=== PATIENT | female | born 1965 | race African-American/Black ===

== ENCOUNTER 2018-06-17 19:55 | Emergency (ER) | payer MEDICAID ==
[~2018-06-17] VITALS: Ht 149.9 cm; Wt 87.1 kg
[2018-06-17 20:19] VITALS: BP 132/77
[2018-06-17] MEDS ORDERED: Ketorolac 60mg Inj IM ONE (20:30)
[2018-06-17] MEDS ORDERED: NAPROXEN375 M2 ORAL (20:31)
--- NOTE | 2018-06-17 20:31 | Emergency Room Report ---
History of Present Illness General Chief Complaint: Back Pain-No Injury Source: Patient Present Illness HPI The pain is described as a burning-ache across lower back gradual onset two days. It is not "tearing" quality. There is no trauma per se, no weakness or numbness or bladder or bowel abnormality. There are no urinary complaints (no frequency, urgency or dysuria.) There is no flank pain. There is no abdominal pain. There is no discharge. Pt. is ambulatory. No recent PSH/procedures/ trauma. +previous ED visits for same. About ~seven year history LBP, s/p laminectomy, was on [place] chronically. Recently switched off [place]. Allergies: Coded Allergies: LATEX (Verified Allergy, Unknown, 06/17/18) Patient History Last Menstrual Period: n/a Nursing Documentation-H Past Medical History: No History, Except For Review of Systems Constitutional: Reports: no symptoms Eye: Reports: no symptoms ENT: Reports: no symptoms Respiratory: Reports: no symptoms Cardiovascular: Reports: no symptoms Gastrointestinal: Reports: no symptoms Genitourinary: Reports: no symptoms Musculoskeletal: Reports: back pain Skin: Reports: no symptoms Psychiatric: Reports: no symptoms Neurological: Reports: no symptoms Endocrine: Reports: no symptoms Hematologic/Lymphatic: Reports: no symptoms Allergic: Reports: no symptoms All Other Systems: negative except mentioned in HPI Physical Exam Vital Signs Date Time Temp Pulse Resp B/P (MAP) Pulse Ox O2 Delivery O2 Flow Rate FiO2 06/17/18 20:06 98.6 74 16 132/77 96 Room Air Sp02 EP Interpretation: reviewed, normal General Appearance: normal inspection, well appearing, alert, GCS 15, non-toxic , mild distress, other - uncomfortable Head: normocephalic, atraumatic Eyes: bilateral eye normal inspection, bilateral eye PERRL, bilateral eye EOMI ENT: normal ENT inspection, hearing grossly normal, normal pharynx, no angioedema, normal voice, moist mucus membranes Neck: normal inspection, full range of motion, supple, no meningismus, no bony tend Respiratory: normal inspection, lungs clear, normal breath sounds, no rhonchi, no respiratory distress, no retraction, no accessory muscle use, no wheezing Cardiovascular #1: normal inspection, regular rate, rhythm, no edema Gastrointestinal: normal inspection, normal bowel sounds, non tender, soft, no mass, non-distended Musculoskeletal: gait/station normal, normal range of motion Neurologic: normal inspection, alert, oriented x3, responsive, motor strength/ tone normal Psychiatric: normal inspection, judgement/insight normal, memory normal Suicide Risk Assessment: Suicidal Ideation: No Had intent to initiate attempt: No Pt's plan for suicide attempt: No Has means to complete attempt: No Skin: normal inspection, normal color, no rash, warm/dry Medical Decision Making ER Course EMERGENCY DEPARTMENT COURSE / MEDICAL DECISION MAKING: My differential diagnosis was: renal colic, UTI,AAA, aortic dissection, sciatica , early zoster, lumbosacral strain, chronic lumbosacral strain/pain (LBP). My initial impression was: chronic low back pain My final impression was the same and the patient was discharged The patient is a good candidate for outpatient care and will be discharged with instructions to follow up with their PMD or pain management physician as needed. I explained the findings and plan to the patient, who expressed verbal understanding and agreed with plan for discharge and follow up. The patient was given after care instructions and welcomed to return to the ED for any new or worsening symptoms. The patient was stable at the time of discharge. Prescribed Naprosyn 375 mg. BID The patient's blood pressure was elevated >120/80 but appears stable without evidence of hypertensive emergency or urgency. The patient was counseled about the risks of hypertension and urged to pursue outpatient monitoring and therapy within a week with their primary care physician or the list given in the community resources book. Last Vital Signs Date Time Temp Pulse Resp B/P (MAP) Pulse Ox O2 Delivery O2 Flow Rate FiO2 06/17/18 20:19 98.6 16 132/77 96 Room Air 06/17/18 20:06 74 Status: improved Disposition: HOME, SELF-CARE Scripts Naproxen* (NAPROXEN*) 375 Mg Tablet. 375 MG ORAL TWICE A DAY for 10 Days, #20 TAB Prov: Abdirahman Butler M.D. 06/17/18 Patient Instructions: Back Pain, Adult Abdirahman Butler M.D. Jun 17, 2018 20:31
[2018-06-17 20:58] VITALS: BP 140/77
== END 2018-06-17 21:00 | disposition home or self-care (01) ==
LOC: EMR 20:42
DX: M54.5 Low back pain (principal); G89.29 Other chronic pain; Z91.040 Latex allergy status
CPT/HCPCS: 96372; 99283

== ENCOUNTER 2018-08-19 13:17 | Emergency (ER) | payer MEDICAID ==
[~2018-08-19] VITALS: Ht 149.9 cm; Wt 81.6 kg
[~2018-08-19 13:17] MED LIST: NAPROXEN375 M2 ORAL
[2018-08-19 13:30] VITALS: BP 131/82
[2018-08-19] MEDS ORDERED: NKM (13:30)
[2018-08-19] MEDS ORDERED: Methocarbamol 500mg tab ORAL ONE (14:00)
[2018-08-19] MEDS ORDERED: Ketorolac 30mg Inj IM ONE (14:00)
[2018-08-19] MEDS ORDERED: TYLENOL EXTRA500 MG ORAL (14:05)
[2018-08-19] MEDS ORDERED: LIDOCAINE700 M1 TP (14:05)
[2018-08-19] MEDS ORDERED: ROBAXIN500 MG PO (14:05)
--- NOTE | 2018-08-19 14:06 | Emergency Room Report ---
History of Present Illness General Chief Complaint: Back Pain-No Injury Source: Patient Present Illness HPI 53-year-old female patient presents the ER complaining of low back pain for the past week. Patient reports that there is no acute injury or trauma however during the past week she has been doing a lot of repetitive movements at home in preparation for [place] and getting "decorations ready". Patient denies bowel or bladder incontinence. Denies pain rating down her legs. Reports history of stenosis and sciatica, states that she had surgery 10 years ago. Denies pain radiating down legs currently. Reports she was previously taking [place] and Ultram however 4 months ago she went off all opioid pain medicine. States that she was here a month ago for similar symptoms, states that she was given a shot of Toradol which helped relieve her symptoms. Denies history of diabetes. She normally walks with cane. Denies fall. States she normally takes naproxen currently. denies dysuria, hematuria. Allergies: Coded Allergies: LATEX (Verified Allergy, Unknown, 06/17/18) Patient History Past Medical History: see triage record Reviewed Nursing Documentation: PMH: Agreed; PSxH: Agreed Nursing Documentation-PMH Past Medical History: No History, Except For Review of Systems All Other Systems: negative except mentioned in HPI Physical Exam Vital Signs Date Time Temp Pulse Resp B/P (MAP) Pulse Ox O2 Delivery O2 Flow Rate FiO2 08/19/18 13:26 98.1 70 19 131/82 98 Room Air Sp02 EP Interpretation: reviewed, normal General Appearance: well appearing, no apparent distress, alert, GCS 15, non- toxic Head: normocephalic, atraumatic Eyes: bilateral eye normal inspection, bilateral eye PERRL ENT: hearing grossly normal, normal pharynx, no angioedema, normal voice, uvula midline, moist mucus membranes Neck: full range of motion Respiratory: lungs clear, normal breath sounds, no rhonchi, no respiratory distress, no accessory muscle use, no wheezing, speaking full sentences Cardiovascular #1: regular rate, rhythm, no edema Genitourinary: no CVA tenderness Musculoskeletal: back normal, digits/nails normal, gait/station normal, normal range of motion, other - No spinous process tenderness, no bony depression, no erythema or edema, no ecchymosis, tender - Bilateral lumbosacral region Neurologic: alert, oriented x3, responsive, motor strength/tone normal, SLR negative, sensory intact Psychiatric: mood/affect normal Skin: no rash Medical Decision Making PA Attestation Dr. Martines is my supervising Physician whom patient management has been discussed with. Diagnostic Impression: Primary Impression: Chronic back pain ER Course Pt presents to ED c/o back pain. DDX considered but are not limited to sprain, strain, cauda equina, epidural abscess, AAA, spinal cord compression, kidney stones, chronic pain. Denies dysuria, hematuria, denies vaginal discharge, low suspicion for UTI, does not require UA at this time. Low suspicion for cauda equina, no bowel or bladder incontinence or retention. No fever, nontoxic appearing, no radiation of pain, low suspicion for epidural mass. No abdominal pain, no blood pressure elevation, nontoxic appearing, low suspicion for AAA. No acute injury or trauma, does not require imaging at this time. VITAL SIGNS are WNL, patient is afebrile ER COURSE: Toradol, lidocaine patch, Robaxin medication provided. Follow-up with primary care provider for further evaluation and treatment. Reports pain symptoms improve. Patient observed walking in the ER. Advised patient on Tylenol use of naproxen. Followup with pain management and/or PT. Request referral from PCP. Followup wtih PCP for further MRI and/or CT imaging as needed. DISCHARGE: -Rx provided for Tylenol -Rx provided for Lidocaine patch -Rx provided for Robaxin. SE may cause drowsiness, do not take prior to drinking , driving, or operating [employer] machinery. At this time pt. is stable for d/c to home. At this time patient is resting comfortably, in no acute distress, nontoxic appearing, smiling and talking without difficulty. Will provide printed patient care instructions, and any necessary prescriptions. Patient instructed to follow with primary care provider for further treatment and referral as needed. Care plan and follow up instructions have been discussed with the patient prior to discharge. Patient reports understanding and agreement to treatment plan. Patient questions asked and answered. ER precautions given, patient instructed to return to ER immediately for any new or worsening of symptoms. - Please note that this Emergency Department Report was dictated using Choistervegetable grader technology software, occasionally this can lead to erroneous entry secondary to interpretation by the dictation equipment. Last Vital Signs Date Time Temp Pulse Resp B/P (MAP) Pulse Ox O2 Delivery O2 Flow Rate FiO2 08/19/18 13:26 98.1 70 19 131/82 98 Room Air Status: improved Disposition: HOME, SELF-CARE Condition: Stable Scripts Acetaminophen* (TYLENOL EXTRA STRENGTH*) 500 Mg Tablet 500 MG ORAL Q8H PRN for Prn Headache/Temp > 101, #30 TAB 0 Refills Prov: Marcus Sexton 08/19/18 Methocarbamol* (ROBAXIN*) 500 Mg Tablet 500 MG PO TID, #21 TAB 0 Refills Prov: Marcus Sexton 08/19/18 Lidocaine (Lidocaine) 1 Each Adh..patch 5 % TP DAILY for 7 Days, #7 PATCH Prov: Marcus Sexton 08/19/18 Patient Instructions: Back Pain, Adult, Sciatica Additional Instructions: Patient instructed to follow up with primary care provider 3-5 and discuss further referral and imaging at that time. Patient instructed on rest, ice and heat. Do not take muscle relaxant prior to drinking, driving, or operating heavy machinery. Take medications as directed. Patient questions asked and answered. ER precautions given, patient instructed to return to ER immediately for any new or worsening of symptoms. [facility] [address] [facility] [address] [facility], [address] [email or web address] Marcus Sexton Aug 19, 2018 14:06
[2018-08-19 14:45] VITALS: BP 128/80
== END 2018-08-19 14:45 | disposition home or self-care (01) ==
LOC: EMR 14:40
DX: M54.5 Low back pain (principal); G89.29 Other chronic pain; Z91.040 Latex allergy status
CPT/HCPCS: 96372; 99283; J1885

== ENCOUNTER 2018-08-24 12:29 | Emergency (ER) | payer MEDICAID ==
[~2018-08-24] VITALS: Ht 149.9 cm; Wt 81.6 kg
[~2018-08-24 12:29] MED LIST changes: +LIDOCAINE700 M1 TP; +NKM; +ROBAXIN500 MG PO; +TYLENOL EXTRA500 MG ORAL
--- NOTE | 2018-08-24 13:24 | Emergency Room Report ---
History of Present Illness General Chief Complaint: Back Pain-No Injury Source: Patient Present Illness HPI 53-year-old female presents to the emergency department complaining of 10 out of 10 in severity low back pain with majority on the right side and some radiation down the right leg that she is stating is her sciatic symptoms. Patient reports long-standing history of chronic back pain which required multiple surgeries and was at one point on chronic pain management. Patient states that she has been managing well off of narcotic medications and intermittent need for steroid injections/pain injection. Patient states that she is currently in between her insurances and she is hoping to get back with [employer] whom she previously had. Patient states that she was here last week and received similar treatment to what she has had in the past only she reports no relief of her symptoms and is stating that she believes that her treatment may have been different in dosage. Patient reports that she was doing some cleaning the week prior which she believes is what aggravated her low back pain. She denies history of cancer or recent spinal procedures. Denies numbness tingling or loss of sensation or gross motor movements of the extremities, incontinence of bowel or bladder. Denies CP, Palpitations, LOC, AMS , dizziness, Changes in Vision, weakness or a sudden severe headache. Allergies: Coded Allergies: LATEX (Verified Allergy, Unknown, 08/24/18) Patient History Past Medical History: see triage record Past Surgical History: other - multiple back surgeries years ago. Pertinent Family History: none Reviewed Nursing Documentation: PMH: Agreed; PSxH: Agreed Nursing Documentation-PMH Past Medical History: No History, Except For Review of Systems All Other Systems: negative except mentioned in HPI Physical Exam Vital Signs Date Time Temp Pulse Resp B/P (MAP) Pulse Ox O2 Delivery O2 Flow Rate FiO2 08/24/18 12:48 98.2 77 16 113/69 99 Room Air Sp02 EP Interpretation: reviewed, normal General Appearance: alert, GCS 15, non-toxic, mild distress Head: normocephalic, atraumatic Eyes: bilateral eye normal inspection, bilateral eye PERRL ENT: hearing grossly normal, normal voice Neck: full range of motion, no bony tend Respiratory: lungs clear, normal breath sounds, no accessory muscle use, no wheezing, speaking full sentences Cardiovascular #1: regular rate, rhythm Gastrointestinal: non tender, soft Rectal: deferred Genitourinary: normal inspection, no CVA tenderness Musculoskeletal: back normal, normal range of motion, other - ambulatory with cane assistance. , tender - Tenderness to palpation to paraspinal muscles of the lower back with midline tenderness, and the right side is more tender than the left. no spinous process ttp, no obvious deformity or step-offs Neurologic: alert, oriented x3, responsive, motor strength/tone normal, sensory intact, speech normal, grossly normal Psychiatric: judgement/insight normal Skin: normal color, no rash, warm/dry, well hydrated Medical Decision Making PA Attestation Dr. Narvaez is my supervising Physician whom patient management has been discussed with. Diagnostic Impression: Primary Impression: Back pain Qualified Codes: M54.41 - Lumbago with sciatica, right side ER Course 53-year-old female presents to the emergency department complaining of 10 out of 10 in severity low back pain with majority on the right side and some radiation down the right leg that she is stating is her sciatic symptoms. Patient reports long-standing history of chronic back pain which required multiple surgeries and was at one point on chronic pain management. Patient states that she has been managing well off of narcotic medications and intermittent need for steroid injections/pain injection. Patient states that she is currently in between her insurances and she is hoping to get back with [employer] whom she previously had. Patient states that she was here last week and received similar treatment to what she has had in the past only she reports no relief of her symptoms and is stating that she believes that her treatment may have been different in dosage. Patient reports that she was doing some cleaning the week prior which she believes is what aggravated her low back pain. She denies history of cancer or recent spinal procedures. Denies numbness tingling or loss of sensation or gross motor movements of the extremities, incontinence of bowel or bladder. Denies CP, Palpitations, LOC, AMS , dizziness, Changes in Vision, weakness or a sudden severe headache. Ddx considered: epidural abscess, fracture, sprain/strain, meningitis, spinal chord injury, sciatica, cauda equina, Pyelonephritis, renal calculi just to name a few. Vital signs reviewed and are WNL during ED visit. Pt. is afebrile with no signs of infection No new symptoms, and denies recent trauma. No saddle anesthesia noted, Pt. denies incontinence Neurovascular is intact Pt. ambulatory with a cane and * Mild Tenderness to palpation to paraspinal muscles of the lower back with midline tenderness, and the right side is more tender than the left. no spinous process ttp, no obvious deformity or step-offs. *Pt. describes pain today as moderate and radiates across the lower back and down the right leg. -I reviewed this pt.'s previous two visits, and noted there was a difference in dosage of medications administered. As the pt. had relief with the initial treatment, Today's treatment course will be very similar in medication and dosage but with the addition of a short course of steroids. ORDERS: none warranted at this time. INTERVENTIONS: -Toradol 60mg IM -Prednisone 60mg PO D/W Pt. that for further pain management is it recommended to consult PCP, Orthopedic/ Spinal Specialist or a Chronic Pain management doctor. A provider who can continue outpatient pain management or specialty medication/treatments. I do not identify an emergent condition at this time , given this patients current presentation. This patient is stable for close outpatient f/u. DISCHARGE: At this time pt. is stable for d/c to home. Will provide printed patient care instructions, and any necessary prescriptions. Care plan and follow up instructions have been discussed with the patient prior to discharge. Last Vital Signs Date Time Temp Pulse Resp B/P (MAP) Pulse Ox O2 Delivery O2 Flow Rate FiO2 08/24/18 12:48 98.2 77 16 113/69 99 Room Air Disposition: HOME, SELF-CARE Condition: Stable Scripts Ibuprofen* (MOTRIN*) 600 Mg Tablet 600 MG ORAL THREE TIMES A DAY for 5 Days, #15 TAB 0 Refills Prov: Lucrecia Mcgrath 08/24/18 Prednisone* (PREDNISONE*) 20 Mg Tablet 40 MG ORAL DAILY, #4 TAB Prov: Lucrecia Mcgrath 08/24/18 Methocarbamol* (ROBAXIN-750*) 750 Mg Tablet 750 MG PO QID for 7 Days, #28 TAB 0 Refills Prov: Lucrecia Mcgrath 08/24/18 Referrals: El Workman MD (PCP) Patient Instructions: Back Pain, Adult Additional Instructions: Take medications as directed. Follow up with a Primary Care Provider in 3-5 days, even if your symptoms have resolved. --Please review list of primary care clinics, if you do not already have a primary care provider Return sooner to ED if new symptoms occur, or current symptoms become worse. Do not drink alcohol, drive, or operate heavy machinery while taking Robaxin ( Muscle Relaxers) as this may cause drowsiness. - Please note that this Emergency Department Report was dictated using [employer] gold frame technology software, occasionally this can lead to erroneous entry secondary to interpretation by the dictation equipment. Lucrecia Mcgrath Aug 24, 2018 13:23
[2018-08-24] MEDS ORDERED: Ketorolac 60mg Inj IM ONE (13:30)
[2018-08-24] MEDS ORDERED: ROBAXIN-750750 MG PO (13:34)
[2018-08-24] MEDS ORDERED: IBUPROFEN600 MG ORAL (13:34)
[2018-08-24] MEDS ORDERED: PREDNISONE20 MG ORAL (13:34)
[2018-08-24 14:05] VITALS: BP 113/69
[2018-08-24 14:06] VITALS: BP 113/69
--- NOTE | 2018-08-24 14:07 | NUR ---
ED Nurse Note:pain meds are given pt. was examed, treated and cleared for D/C home by ER provider. PT. received D/C instructions with prescriptions, verbalized understanding and left ER with steady gait and all personal belongings , ID bend removed.
== END 2018-08-24 14:08 | disposition home or self-care (01) ==
LOC: EMR 13:21
DX: M54.41 Lumbago with sciatica, right side (principal); Z91.040 Latex allergy status
CPT/HCPCS: 96372; 99283; J7512